=== PATIENT | female | born 1995 | race Two or more races ===

== ENCOUNTER 2017-03-25 03:41 | Emergency (ER) | payer MEDICAID ==
[~2017-03-25] VITALS: Ht 175.3 cm; Wt 77.1 kg
[2017-03-25 03:50] VITALS: BP 109/87
== END 2017-03-25 05:13 | disposition home or self-care (01) ==
LOC: ER 03:41
DX: B86 Scabies (principal)

== ENCOUNTER 2022-10-02 16:21 | Emergency (ER) | payer MEDICAID ==
[~2022-10-02] VITALS: Ht 172.7 cm; Wt 105.6 kg
[2022-10-02 17:17] LABS: Basophils # (auto) 0 10 ^3/uL (0-0.2); Eosinophils # (auto) 0.1 10 ^3/uL (0-0.8); Hemoglobin 12.1 g/dL (12.2-16.2); Mean Corpuscular Hemoglobin 24.6 pg (28.0-32.0); Nucleated Red Blood Cells % 0.2 %
[2022-10-02 17:18] LABS: Basophils % (auto) 0.4 % (0.0-2.0); Eosinophils % (auto) 1.2 % (0.0-7.0); Hematocrit 37.3 % (36.0-46.0); Lymphocytes # (auto) 2.9 10 ^3/uL (0.4-5.4); Lymphocytes % (auto) 33.1 % (10.0-50.0); Mean Corpuscular Hgb Conc. 32.4 g/dL (32.0-36.0); Mean Corpuscular Volume 75.8 fL (80.0-100.0); Monocytes # (auto) 0.4 10 ^3/uL (0-1.3); Neutrophils # (auto) 5.4 10 ^3/uL (1.6-8.6); Neutrophils % (auto) 60.3 % (37.0-80.0); Red Blood Cells 4.92 10^6/uL (4.0-5.20); Red Cell Distribution Width 17.7 % (11.8-14.3); White Blood Cell 8.9 10^3/uL (4.4-10.8)
[2022-10-02 17:37] LABS: Albumin 3.4 g/dL (3.4-5.0); Calcium 8.4 mg/dL (8.5-10.1); Potassium 3.8 mmol/L (3.5-5.1)
[2022-10-02 17:40] LABS: BUN/Creatinine Ratio 15.8; Bilirubin, Total 0.6 mg/dL (0.2-1.0); Total Protein 6.8 g/dL (6.4-8.2)
[2022-10-02 18:27] LABS: Urine Bacteria NONE SEEN /hpf (None Seen); Urine Blood 3+ /uL (Negative); Urine Specific Gravity 1.005 (1.001-1.035); Urine WBC 3 /hpf (0 - 5)
[2022-10-02 21:40] VITALS: BP 106/65
== END 2022-10-02 21:44 | disposition home or self-care (01) ==
LOC: ER 16:21
DX: O20.8 Other hemorrhage in early pregnancy (principal); R10.2 Pelvic and perineal pain; Z3A.13 13 weeks gestation of pregnancy
CPT/HCPCS: 36415; 76801; 80053; 81001; 84702; 85025; 86850; 86900; 86901